=== PATIENT | female | born 1980 | race Caucasian/White ===

== ENCOUNTER 2019-06-25 05:31 | Day surgery (SDC) | payer BC ==
[2019-06-24 10:48] LABS: BASOPHILS # (AUTO) 0.05 x10^3/uL (0-0.1); BASOPHILS % (AUTO) 0 % (0-1); EOSINOPHILS # (AUTO) 0.12 x10^3/uL (0-0.4); EOSINOPHILS % (AUTO) 1 % (1-7); LYMPHOCYTES # (AUTO) 2.36 x10^3/uL (1-3.4); LYMPHOCYTES % (AUTO) 18 % (22-44); MD NO; MEAN CORPUSCULAR HEMOGLOBIN 33.7 pg (27.0-34.8); MEAN CORPUSCULAR HGB CONC 33.3 g/dL (32.4-35.8); MEAN CORPUSCULAR VOLUME 101.3 fL (80-100); MEAN PLATELET VOLUME 8.3 fL (7.4-10.4); MONOCYTES # (AUTO) 0.63 x10^3/uL (0.2-0.8); MONOCYTES % (AUTO) 5 % (2-9); NEUTROPHILS # (AUTO) 9.83 x10^3/uL (1.8-6.8); NEUTROPHILS % (AUTO) 76 % (42-75); PLATELET COUNT 298 x10^3/uL (130-400); RED BLOOD COUNT 4.56 x10^6/uL (3.82-5.3); RED CELL DISTRIBUTION WIDTH 13.2 % (9.6-15.2)
[2019-06-24 10:54] LABS: ANION GAP 6 mmol/L (5-15); CALCIUM 8.2 mg/dL (8.5-10.1); CHLORIDE 112 mmol/L (98-107); CREATININE 0.79 mg/dL (0.55-1.02)
[~2019-06-25] VITALS: Ht 157.5 cm; Wt 65.0 kg
[~2019-06-25 05:31] MED LIST: None per pt
[2019-06-25] MEDS ORDERED: LACTATED RINGERS 1,000 ML IV SCH (06:02)
[2019-06-25 06:05] VITALS: BP 122/82
[2019-06-25] MEDS ORDERED: BUPIVACAINE/PF-EPI 0.25% 1:200K ONE (07:05)
[2019-06-25] MEDS ORDERED: NEOSPORIN OINT, 15GM ONE (07:05)
[2019-06-25] MEDS ORDERED: MAGNESIUM SULFATE 1 GM/2 ML ONE (07:14)
[2019-06-25] MEDS ORDERED: LIDOCAINE/PF 0.5% ,50ML ONE (07:15)
[2019-06-25] MEDS ORDERED: ROCURONIUM 10MG/ML,5ML ONE (07:20)
[2019-06-25] MEDS ORDERED: LIDOCAINE-MPF 2% ,5ML ONE (07:20)
[2019-06-25] MEDS ORDERED: LIDOCAINE 2% 100MG/5ML SYRINGE ONE (07:20)
[2019-06-25] MEDS ORDERED: GLYCOPYRROLATE 0.2MG/1ML, 5ML ONE (07:20)
[2019-06-25] MEDS ORDERED: DEXAMETHASONE 4 MG/ML, 1ML ONE (07:20)
[2019-06-25] MEDS ORDERED: PROPOFOL 10 MG/ML, 20ML ONE (07:20)
[2019-06-25] MEDS ORDERED: MIDAZOLAM 1 MG/ML, 5ML ONE (07:21)
[2019-06-25] MEDS ORDERED: FENTANYL PF 250 MCG/5ML ONE (07:21)
[2019-06-25] MEDS ORDERED: SCOPOLAMINE PATCH, 1.5MG PATCH.TD72 TD ONE ×2 (07:26→07:30)
[2019-06-25] MEDS ORDERED: LABETALOL 5MG/ML, 20ML IV PRN (07:30)
[2019-06-25] MEDS ORDERED: EPHEDRINE 50 MG/ML, 1ML IM PRN (07:30)
[2019-06-25] MEDS ORDERED: MORPHINE SULFATE 4 MG/ML, 1ML IVPush PRN (07:30)
[2019-06-25] MEDS ORDERED: HYDROmorphone 2 MG/ML, 1ML IVPush PRN (07:30)
[2019-06-25] MEDS ORDERED: OXYcodone 5 MG/5 ML ORAL.SOL UDC PO PRN (07:30)
[2019-06-25] MEDS ORDERED: MEPERIDINE/PF 25MG/ML,1ML IVPush PRN (07:30)
[2019-06-25] MEDS ORDERED: DEXAMETHASONE 4 MG/ML, 1ML IV PRN (07:30)
[2019-06-25] MEDS ORDERED: KETOROLAC 30 MG/1 ML IV PRN (07:30)
[2019-06-25] MEDS ORDERED: METOCLOPRAMIDE 5 MG/ML, 2ML IV PRN (07:30)
[2019-06-25] MEDS ORDERED: MIDAZOLAM 1 MG/ML, 2ML IV PRN (07:30)
[2019-06-25] MEDS ORDERED: hydrALAzine 20 MG/ML, 1ML IV PRN (07:30)
[2019-06-25] MEDS ORDERED: ALBUTEROL/IPRATROPIUM 2.5MG/0.5MG, 3 ML NPPB PRN (07:30)
[2019-06-25] MEDS ORDERED: EPHEDRINE 50 MG/ML, 1ML IVPush PRN (07:30)
[2019-06-25] MEDS ORDERED: DIPHENHYDRAMINE 50 MG/ML, 1ML IVPush PRN (07:30)
[2019-06-25] MEDS ORDERED: FAMOTIDINE 20 MG TABLET PO ONE (07:30)
[2019-06-25] MEDS ORDERED: HYDROcodone/APAP 7.5-325MG/15ML UDC PO PRN (07:30)
[2019-06-25] MEDS ORDERED: FENTANYL PF 100 MCG/2ML IV PRN (07:30)
[2019-06-25] MEDS ORDERED: ONDANSETRON 2MG/ML, 2ML IV PRN (07:30)
[2019-06-25] MEDS ORDERED: BUPIVACAINE/PF-EPI 0.25% 1:200K INFIL ONE (08:08)
[2019-06-25] MEDS ORDERED: NEOSPORIN OINT, 15GM TP ONE (08:08)
[2019-06-25] MEDS ORDERED: CEFAZOLIN 1,000 MG ONE (08:10)
[2019-06-25] MEDS ORDERED: ONDANSETRON 2MG/ML, 2ML ONE ×2 (08:10→09:09)
[2019-06-25] MEDS ORDERED: KETOROLAC 30 MG/1 ML ONE (08:51)
[2019-06-25] MEDS ORDERED: OXYcodone 5 MG/5 ML ORAL.SOL UDC ONE (09:00)
[2019-06-25] MEDS ORDERED: FENTANYL PF 100 MCG/2ML ONE (09:00)
[2019-06-25] MEDS ORDERED: MIDAZOLAM 1 MG/ML, 2ML ONE (09:10)
== END 2019-06-25 11:00 | disposition home or self-care (01) ==
LOC: OUT 05:31
PROVIDERS: ATTEND Obstetrics & Gynecology Maternal & Fetal Medicine
DX: N83.11 Corpus luteum cyst of right ovary (principal); N83.01 Follicular cyst of right ovary; N73.6 Female pelvic peritoneal adhesions (postinfective); F41.9 Anxiety disorder, unspecified; F17.290 Nicotine dependence, other tobacco product, uncomplicated; Z90.710 Acquired absence of both cervix and uterus; Z90.79 Acquired absence of other genital organ(s); Z90.721 Acquired absence of ovaries, unilateral; Z98.890 Other specified postprocedural states
CPT/HCPCS: 36415; 58661; 80048; 85025; 88305; J0690; J1100; J1200; J1885; J2001; J2250; J2704; J3010; J3475; J7120; J2405